=== PATIENT | male | born 1960 | race Two or more races ===

== ENCOUNTER 2024-02-12 18:49 | Emergency (ER) | payer BC ==
[~2024-02-12] VITALS: Ht 172.7 cm; Wt 86.0 kg
[2024-02-12 18:57] VITALS: O2SAT 98
[2024-02-12 19:40] VITALS: TEMP 98.3
[2024-02-12] MEDS: HYDROMORPHONE HCL/PF 2MG/ML CPJ IM ONE ×2 (19:45→20:45)
[2024-02-12 19:50] LABS: BASOPHILS % 0.4 % (0.0-2.0); HEMATOCRIT. 38.6 % (42.0-52.0); HEMOGLOBIN. 12.9 g/dL (14.0-18.0); LYMPHOCYTES % 38.6 % (20.0-50.0); MEAN CORPUSCULAR HEMOGLOBIN 29.9 pg (28.0-32.0); MEAN CORPUSCULAR HGB CONC 33.5 g/dL (31.0-37.0); MEAN CORPUSCULAR VOLUME 89.2 fL (80.0-94.0); MEAN PLATELET VOLUME 8.6 fl (7.4-10.4); MONOCYTES % 9.2 % (2.0-8.0); NEUTROPHILS % 49.8 % (40.0-76.0); PLATELET 227 x1000/uL (130-400); RED BLOOD CELL COUNT 4.33 mill/uL (4.7-6.1)
[2024-02-12 20:04] LABS: ALANINE AMINOTRANSFERASE 14 IU/L (10-49); ALBUMIN 4.4 g/dL (3.2-4.8); ASPARTATE AMINOTRANSFERASE 21 IU/L (<34); BILIRUBIN TOTAL 0.2 mg/dL (0.1-1.0); CALCIUM 8.8 mg/dL (8.7-10.4); CARBON DIOXIDE 25 mEq/L (21-32); CHLORIDE 106 mEq/L (98-107); CREATININE 0.9 mg/dL (0.6-1.3); GLUCOSE 92 mg/dL (70-105); POTASSIUM 3.7 mEq/L (3.5-5.1); PROTEIN TOTAL 7.3 g/dL (6.0-8.3); SODIUM 138 mEq/L (136-145); TROPONIN I HIGH SENSITIVITY 4 ng/L (3.0-53); UREA NITROGEN BLOOD 11 mg/dL (9-23)
[2024-02-12 22:17] LABS: TROPONIN I HIGH SENSITIVITY 4 ng/L (3.0-53)
[2024-02-13 07:44] VITALS: BP 125/90; PULSE 118; RESP 12
== END 2024-02-13 07:16 | disposition home or self-care (01) ==
LOC: ER 18:49 → CANBEDREQ 22:15 → ER 02-13 07:16
DX: R07.89 Other chest pain (principal)
CPT/HCPCS: 99285; 71045; 80053; 83880; 85025; 84484; 36415; 93005; 96372; J1170